=== PATIENT | male | born 1995 | race African-American/Black ===

== ENCOUNTER 2016-12-02 17:42 | Emergency (ER) | payer SELFPAY ==
[2016-12-02 17:45] VITALS: BP 133/75; BMI 25.7
--- NOTE | 2016-12-02 18:36 | DR.LACERAT ---
HPI - Time Seen Time seen: 17:50 - Primary Care Physician Primary Care Physician: NFD - Complaints Chief Complaint Doctors Comments: Agree with statement. Denies pain at this time. There is no bleeding Chief Complaint:: PT. CUT HIS RIGHT HAND NEAR BASE OF THUMB ON A FENCE EARLIER TODAY. AREA IS APPROXIMATELY 4 CM IN LENGTH. - Source History Provided: Patient - Mode of Arrival Mode of Arrival: Ambulatory - Timing Onset of Chief Complaint: 12/02/16 PMH - PMH Past Medical History: No Past Surgical History: No Surgical History: No History - Family History History of Family Medical Conditions: No - Social History Does patient currently use any type of tobacco product: No Have you used tobacco products in the last 12 months: No Type of Tobacco Use: None Does any household member use tobacco: No Alcohol Use: Occasionally Do you use any recreational Drugs:: No Lives With: Family Lives Where: Home - infectious screening In the last 2 months have you had wt loss of >10#?: NO Have you had fever, night sweats or hemotysis?: No Have you traveled outside the country in the last 6 months?: No Isolation: Standard ROS - Review of Systems Eyes: No Symptoms Reported ENTM: No Symptoms Reported Respiratoy: No Symptoms Reported Cardiovascular: No Symptoms Reported Gastrointestinal/Abdominal: No Symptoms Reported Genitourinary: No Symptoms Reported Neurological: No Symptoms Reported Musculoskeletal: No Symptoms Reported Integumentary: Other (superficial laceration ) Hematologic/Lymphatic: No Symptoms Reported Endocrine: No Symptoms Reported Psychiatric: No Symptoms Reported All Other Systems: Reviewed and Negative PE - Vital Signs Vitals: Temperature 98.8 F Pulse Rate 80 Respiratory Rate 16 Blood Pressure 133/75 O2 Sat by Pulse Oximetry 96 - General Limitations: No Limitations General Appearance: Alert, In No Apparent Distress - Head Head Exam: Normal Inspection, Atraumatic - Eyes Eye exam: Normal Appearance, PERRL, EOMI - ENT ENT Exam: Normal Exam - Neck Neck Exam: Normal Inspection, Full ROM - Chest Chest Inspection: Normal Inspection - Respiratory Respiratory Exam: Normal Lung Sounds Bilat Respiratory Exam: Bilateral Clear to Auscultation - Cardiovascular Cardiovascular Exam: Regular Rate - Abdominal Exam Abdominal Exam: Normal Inspection Abdominal Tenderness: negative: RUQ, RLQ, LUQ, LLQ, Epigastrium, Suprapubic, Diffuse, Mild, Moderate, Severe, Other - Extremities Extremities Exam: Other (Thenar emminence with a 4cm superficial laceration) - Back Back Exam: Normal Inspection - Neurologic Neurological Exam: Alert, Oriented X3, CN II-XII Intact - Psychiatric Psychiatric Exam: Normal Affect, Normal Mood - Skin Skin Exam: Warm, Dry Procedures - Laceration/Wound Repair Right Hand Wound Length (cm): 4 Wound's Depth, Shape: Linear Betadine Prep?: Yes Wound Repaired With: Dermabond - Diagnosis Discharge Problem: Laceration - Discharge Plan Condition: Stable - Follow ups/Referrals Follow ups/Referrals: NFD,None [Primary Care Provider] - 3 days - Instructions
== END 2016-12-02 19:15 | disposition home or self-care (01) ==
LOC: ER 17:52
PROC: 0XQJ0ZZ Repair Right Hand, Open Approach (ICD-10-PCS; principal; 2016-12-02)
DX: S61.411A Laceration without foreign body of right hand, initial encounter (principal); W45.8XXA Other foreign body or object entering through skin, initial encounter; Y92.9 Unspecified place or not applicable
CPT/HCPCS: 12001; 99282

== ENCOUNTER 2017-03-15 15:57 | Emergency (ER) | payer SELFPAY ==
[2017-03-15 16:03] VITALS: BP 142/74; BMI 24.3
--- NOTE | 2017-03-15 16:26 | DR.GENAD ---
HPI - PCP Primary Care Physician: none - HPI Comment HPI Comment: WORSE TODAY. NON PRESCRIPTION MEDICATIONS NOT HELPING. NAUSEA PRESENT. NO FEVER. - Complaint/Symptoms Chief Complaint Doctors Comments: HEADACHE TIMES 3 DAYS. Chief Complaint:: head has been hurting all weekend - Nurses notes reviewed Nurses Notes Review: Yes - Source History Provided: Patient - Mode of Arrival Mode of Arrival: Ambulatory - Timing Onset of Chief Complaint: 03/12/17 Came on: Suddenly - Duration Duration: Constant Duration: Days - Severity Severity: Moderate PMH - PMH Past Medical History: No Past Surgical History: No Surgical History: No History - Family History History of Family Medical Conditions: No - Social History Does patient currently use any type of tobacco product: No Have you used tobacco products in the last 12 months: No Type of Tobacco Use: None Does any household member use tobacco: No Alcohol Use: Occasionally Do you use any recreational Drugs:: No Lives With: Family Lives Where: Home - infectious screening In the last 2 months have you had wt loss of >10#?: NO Have you had fever, night sweats or hemotysis?: No Have you traveled outside the country in the last 6 months?: No Isolation: Standard ROS - Review of Systems Constitutional: No Symptoms Reported Eyes: No Symptoms Reported ENTM: No Symptoms Reported Respiratoy: No Symptoms Reported Cardiovascular: No Symptoms Reported Gastrointestinal/Abdominal: No Symptoms Reported Genitourinary: No Symptoms Reported Neurological: Headache Musculoskeletal: No Symptoms Reported Integumentary: No Symptoms Reported Hematologic/Lymphatic: No Symptoms Reported Endocrine: No Symptoms Reported All Other Systems: Reviewed and Negative PE - Vital Signs Vitals: Temperature 98 F Pulse Rate 60 Respiratory Rate 18 Blood Pressure 142/74 O2 Sat by Pulse Oximetry 98 - General Limitations: No Limitations General Appearance: Alert - Head Head Exam: Normal Inspection - Eyes Eye exam: Normal Appearance - ENT ENT Exam: Normal External Ear Exam External Ear Exam: Normal External Inspection TM/Canal Exam: Bilateral Normal Nose Exam: Normal Nose Exam Mouth Exam: Normal Inspection Throat Exam: Normal Inspection - Chest Chest Inspection: Symmetric Chest Wall Rise - Respiratory Respiratory Exam: Normal Lung Sounds Bilat Respiratory Exam: Bilateral Clear to Auscultation - Cardiovascular Cardiovascular Exam: Regular Rate, Normal Rhythm, Normal Heart Sounds - Abdominal Exam Abdominal Exam: Normal Bowel Sounds, Soft. negative: Tenderness - Extremities Extremities Exam: Normal Inspection - Back Back Exam: Normal Inspection - Neurologic Neurological Exam: Alert, Oriented X3, CN II-XII Intact, Normal Gait, Reflexes Normal. negative: Motor Sensory Deficit - Psychiatric Psychiatric Exam: Normal Affect, Normal Mood - Skin Skin Exam: Normal Color MDM - Differential Diagnosis Differential Diagnosis: HEADACHE, MIGRAINE, CVA, SINUSITIS Course - Treatment Treatment: SEE ORDERS. IM TORADOL. PAIN IMPROVED. - Reevaluation 1st: Improved - Education/Counseling Education/Counseling: Patient, Education Educated On: Treatment, Diagnosis, Needs for Follow Up ROR - XRAY XRAY Interpreted by: Radiologist XRAY Findings: REPORT DISCUSS WITH PATIENT. - Diagnosis Discharge Problem: Headache Qualifiers: Headache type: unspecified Headache chronicity pattern: acute headache Intractability: intractable Qualified Code(s): R51 - Headache - Discharge Plan Disposition: 01 HOME, SELF-CARE Condition: Stable Prescriptions: Amoxicillin [Amoxil 875 mg] 875 mg PO BID #20 tab Cetirizine HCl [Zyrtec Tab 10 mg] 10 mg PO DAILY #20 tab Ibuprofen [MOTRIN TAB 600 MG *] 600 mg PO TID PRN #20 tab PRN Reason: Pain/Inflammation - Follow ups/Referrals Follow ups/Referrals: NFD,None [Primary Care Provider] - 3 days - Instructions Instructions: Sinus Headache, [id number], Sinusitis, Adult Additional Instructions: RETURN TO ED IF WORSE.
[2017-03-15] MEDS ORDERED: TORADOL 60 MG VIAL IM ONE (16:34)
[2017-03-15] MEDS ORDERED: TORADOL 60 MG VIAL ONE (16:48)
--- NOTE | 2017-03-15 17:25 | CT ---
STUDY: CT HEAD WITHOUT CONTRAST HISTORY: Headache all weekend. TECHNIQUE: Multiple axial images of the head were obtained from the skull base to the vertex withou t administration of IV contrast. Automated exposure control (AEC) was utilized to adjust the MA and /or kV. COMPARISON: None. FINDINGS: The sulci, cisterns and ventricles are age appropriate. There is no evidence of acute ter ritorial infarction, hemorrhage, mass, mass effect, or midline shift. There are no abnormal intra-ax ial or extra-axial fluid collections. There is no evidence of acute osseous abnormality or significant soft tissue swelling. There are flu id levels in both maxillary sinuses. IMPRESSION: 1. No evidence of acute intracranial abnormality. 2. Fluid levels in both maxillary sinuses. Clinical correlation for acute sinusitis is recommended. Reported By:
== END 2017-03-15 17:47 | disposition home or self-care (01) ==
LOC: ER 16:13
DX: R51 Headache (principal)
CPT/HCPCS: 70450; 96372; 99282; J1885